=== PATIENT | female | born 1965 | race Caucasian/White ===

== ENCOUNTER 2017-12-22 08:01 | Emergency (ER) | payer MEDICAID ==
[~2017-12-22] VITALS: Ht 175.3 cm; Wt 56.0 kg
[~2017-12-22 08:01] MED LIST: BUPR100T4 PO; HYDR-565 PO; HYDR-569 PO; KETO10TA2 PO; LORA10TA7 PO; METH18TA4 PO
[2017-12-22 08:36] LABS: URINE HCG NEGATIVE (NEG)
[2017-12-22 09:07] LABS: CLARITY,URINE CLOUDY (Clear); COLOR,URINE YELLOW (Yellow); GLUCOSE, URINE NEGATIVE (Neg); KETONES,URINE NEGATIVE (Neg); LEUKOCYTE ESTERASE ,URINE NEGATIVE (Neg); NITRITES, URINE NEGATIVE (Neg); OCCULT BLOOD,URINE NEGATIVE (Neg); PH,URINE 7.5 (4.8-8.0); PROTEIN,URINE NEGATIVE (Neg); UROBILINOGEN,URINE 0.2 E.U/dL (0.2-1.0)
[2017-12-22 09:13] LABS: UA COLLECTION TYPE FOLEY CATH
[2017-12-22 09:15] LABS: SQUAMOUS EPITHELIAL CELL,UR FEW /LPF (FEW)
[2017-12-22 09:17] LABS: BACTERIA,URINE NONE SEEN /HPF (Neg); MUCUS STRANDS NONE SEEN /LPF (Neg); RBC,URINE NONE SEEN /HPF (0-2); WBC,URINE 0-4 /HPF (0-4)
[2017-12-22 09:18] LABS: AMORPHOUS PHOSPHATES 4+
[2017-12-22] MEDS ORDERED: ketorolac trometh inj. 60 MG/2 ML VIAL IM ONE (09:20)
[2017-12-22 09:45] VITALS: BP 137/88
== END 2017-12-22 09:47 | disposition home or self-care (01) ==
LOC: ER 08:02
DX: M54.5 Low back pain (principal); M06.9 Rheumatoid arthritis, unspecified; Z86.14 Personal history of Methicillin resistant Staphylococcus aureus infection; Z98.890 Other specified postprocedural states; Z79.899 Other long term (current) drug therapy; Z87.442 Personal history of urinary calculi; Z88.1 Allergy status to other antibiotic agents; Z56.0 Unemployment, unspecified; W22.8XXA Striking against or struck by other objects, initial encounter; Y93.89 Activity, other specified; Y92.89 Other specified places as the place of occurrence of the external cause; Y99.8 Other external cause status
CPT/HCPCS: 81001; 81025; 96372; 99284; J1885

== ENCOUNTER 2018-02-05 17:49 | Emergency (ER) | payer MEDICAID ==
[~2018-02-05] VITALS: Ht 175.3 cm; Wt 58.6 kg
[2018-02-05 19:00] VITALS: BP 139/81
== END 2018-02-05 20:04 | disposition home or self-care (01) ==
LOC: ER 17:49
DX: M54.5 Low back pain (principal); M06.9 Rheumatoid arthritis, unspecified; Z87.442 Personal history of urinary calculi; Z86.14 Personal history of Methicillin resistant Staphylococcus aureus infection; Z98.890 Other specified postprocedural states; Z56.0 Unemployment, unspecified; Z88.8 Allergy status to other drugs, medicaments and biological substances; Z79.899 Other long term (current) drug therapy
CPT/HCPCS: 72100; 99284

== ENCOUNTER 2018-05-25 04:15 | Emergency (ER) | payer MEDICAID ==
[~2018-05-25] VITALS: Ht 175.3 cm; Wt 40.0 kg
[2018-05-25] MEDS ORDERED: LIDOcaine 1%/PF 5ML 10 MG/ML VIAL IJ ONE (06:35)
[2018-05-25 07:00] VITALS: BP 139/87
== END 2018-05-25 07:09 | disposition home or self-care (01) ==
LOC: ER 04:16
DX: S90.852A Superficial foreign body, left foot, initial encounter (principal); Z86.14 Personal history of Methicillin resistant Staphylococcus aureus infection; Z98.890 Other specified postprocedural states; Z56.0 Unemployment, unspecified; Z88.1 Allergy status to other antibiotic agents; Z79.899 Other long term (current) drug therapy; X58.XXXA Exposure to other specified factors, initial encounter; Y93.01 Activity, walking, marching and hiking; Y92.830 Public park as the place of occurrence of the external cause; Y99.8 Other external cause status
CPT/HCPCS: 73620; 99284; J2001; A6449

== ENCOUNTER 2018-08-21 09:54 | Emergency (ER) | payer MEDICAID ==
[~2018-08-21] VITALS: Ht 175.3 cm; Wt 60.9 kg
[~2018-08-21 09:54] MED LIST changes: +HYDR-4353 PO; +HYDR-4383 PO; -HYDR-565 PO; -HYDR-569 PO
[2018-08-21 10:48] VITALS: BP 124/79
[2018-08-21] MEDS ORDERED: ketorolac trometh inj. 60 MG/2 ML VIAL IM ONE (11:30)
[2018-08-21] MEDS ORDERED: cyclobenzaprine 10mg tablet PO ONE (11:30)
[2018-08-21] MEDS ORDERED: IBUP-1984 PO (11:31)
[2018-08-21] MEDS ORDERED: CYCL-1 PO (11:31)
== END 2018-08-21 11:58 | disposition home or self-care (01) ==
LOC: ER 09:55
DX: S29.012A Strain of muscle and tendon of back wall of thorax, initial encounter (principal); F32.9 Major depressive disorder, single episode, unspecified; M06.9 Rheumatoid arthritis, unspecified; Z88.1 Allergy status to other antibiotic agents; Z79.899 Other long term (current) drug therapy; Z87.442 Personal history of urinary calculi; Z86.14 Personal history of Methicillin resistant Staphylococcus aureus infection; Z56.0 Unemployment, unspecified; X50.0XXA Overexertion from strenuous movement or load, initial encounter; Y93.89 Activity, other specified; Y92.89 Other specified places as the place of occurrence of the external cause; Y99.8 Other external cause status
CPT/HCPCS: 96372; 99283; J1885; 87070; 87075; 87077; 87102; 87186

== ENCOUNTER 2018-09-14 12:47 | Emergency (ER) | payer MEDICAID ==
[~2018-09-14] VITALS: Ht 175.3 cm; Wt 60.5 kg
[~2018-09-14 12:47] MED LIST changes: +CYCL-1 PO
[2018-09-14 13:22] VITALS: BP 126/84
== END 2018-09-14 14:16 | disposition home or self-care (01) ==
LOC: ER 12:47
DX: M50.323 Other cervical disc degeneration at C6-C7 level (principal); M06.9 Rheumatoid arthritis, unspecified; Z87.442 Personal history of urinary calculi; Z98.890 Other specified postprocedural states; Z56.0 Unemployment, unspecified; Z88.1 Allergy status to other antibiotic agents; Z79.899 Other long term (current) drug therapy
CPT/HCPCS: 72040; 99283

== ENCOUNTER 2018-12-19 12:19 | Emergency (ER) | payer MEDICAID ==
[~2018-12-19] VITALS: Ht 175.3 cm; Wt 59.1 kg
[2018-12-19 12:39] VITALS: BP 140/92
--- NOTE | 2018-12-19 15:08 | NUR ---
Splint and sling placed my [facility].
--- NOTE | 2018-12-19 15:12 | NUR ---
Pt was informed of need for urine drug screen prior to any narcotic pain medication. Pt became agitated and ambulated out of the ED. Addendum: 12/19/18 at 1517 by [email or web address] Pt ambulated out of ED prior to receiving discharge instructions.
== END 2018-12-19 15:19 | disposition home or self-care (01) ==
LOC: ER 12:20
DX: S62.102A Fracture of unspecified carpal bone, left wrist, initial encounter for closed fracture (principal); M06.9 Rheumatoid arthritis, unspecified; Z87.442 Personal history of urinary calculi; Z86.14 Personal history of Methicillin resistant Staphylococcus aureus infection; Z98.890 Other specified postprocedural states; Z56.0 Unemployment, unspecified; Z88.8 Allergy status to other drugs, medicaments and biological substances; Z79.899 Other long term (current) drug therapy; W18.39XA Other fall on same level, initial encounter; Y93.89 Activity, other specified; Y92.89 Other specified places as the place of occurrence of the external cause; Y99.8 Other external cause status
CPT/HCPCS: 29125; 73110; 99284

== ENCOUNTER 2019-01-26 20:07 | Emergency (ER) | payer MEDICAID ==
[~2019-01-26] VITALS: Ht 175.3 cm; Wt 62.3 kg
[2019-01-26 20:12] VITALS: BP 165/98
[2019-01-26] MEDS ORDERED: LIDOcaine Viscous 15ml cup MM STA (20:17)
[2019-01-26] MEDS ORDERED: mag hydrox/Alum hydrox/simeth 30ml oral suspension PO ONE (20:20)
== END 2019-01-26 21:23 | disposition left against medical advice (07) ==
LOC: ER 20:08
DX: J02.9 Acute pharyngitis, unspecified (principal); Z53.21 Procedure and treatment not carried out due to patient leaving prior to being seen by health care provider

== ENCOUNTER 2019-08-16 14:42 | Emergency (ER) | payer MEDICAID ==
[~2019-08-16] VITALS: Ht 175.3 cm; Wt 58.0 kg
[2019-08-16 14:48] VITALS: BP 141/99
[2019-08-16] MEDS ORDERED: SULF1TAB49 PO (15:39)
== END 2019-08-16 16:11 | disposition home or self-care (01) ==
LOC: ER 14:43
DX: S80.811A Abrasion, right lower leg, initial encounter (principal); L03.115 Cellulitis of right lower limb; M19.90 Unspecified osteoarthritis, unspecified site; F32.9 Major depressive disorder, single episode, unspecified; Z86.14 Personal history of Methicillin resistant Staphylococcus aureus infection; Z87.442 Personal history of urinary calculi; Z98.890 Other specified postprocedural states; Z56.0 Unemployment, unspecified; Z88.1 Allergy status to other antibiotic agents; Z79.899 Other long term (current) drug therapy; X58.XXXA Exposure to other specified factors, initial encounter; Y93.89 Activity, other specified; Y92.89 Other specified places as the place of occurrence of the external cause; Y99.8 Other external cause status
CPT/HCPCS: 99283

== ENCOUNTER 2020-02-19 15:27 | Emergency (ER) | payer MEDICAID ==
[~2020-02-19] VITALS: Ht 175.3 cm; Wt 57.4 kg
[2020-02-19] MEDS ORDERED: ondansetron/PF 4mg/2ml inj IV ONE (15:55)
[2020-02-19] MEDS ORDERED: normal saline 1000ml 1,000 ML IV ONE (15:55)
--- NOTE | 2020-02-19 16:01 | NUR ---
PT OUT TO CT VIA [facility] M WITH ADMINISTRATIVE PROFESSIONAL
[2020-02-19 16:54] LABS: BASOPHILS # (AUTO) 0.2 X10'3 (0-0.2); BASOPHILS % (AUTO) 1.2 % (0-1); EOSINOPHILS % (AUTO) 0.1 % (0-6); HEMATOCRIT 41.7 % (35.0-45.0); HEMOGLOBIN 13.5 g/dl (12.0-16.0); LYMPHOCYTES # (AUTO) 0.8 X10'3 (1.1-4.8); LYMPHOCYTES % (AUTO) 4.6 % (21-51); MEAN CORPUSCULAR HEMOGLOBIN 29.3 PG (27.0-31.0); MEAN CORPUSCULAR HGB CONC 32.4 g/dL (33.0-36.5); MEAN CORPUSCULAR VOLUME 90.2 FL (78-98); MEAN PLATELET VOLUME 8.6 FL (7.4-10.4); MONOCYTES # (AUTO) 0.8 X10'3 (0-0.9); MONOCYTES % (AUTO) 4.5 % (2-12); NEUTROPHILS # (AUTO) 15.6 X10'3 (1.8-7.7); NEUTROPHILS % (AUTO) 89.6 % (42-75); PLATELET COUNT 177 X10'3 (140-440); RED BLOOD COUNT 4.62 X10'6 (4.20-5.60); RED CELL DISTRIBUTION WIDTH 13.7 % (11.5-14.5); WHITE BLOOD COUNT 17.4 X10'3 (4.5-11.0)
[2020-02-19] MEDS ORDERED: levetiracetam inj 1,000 MG in normal saline 100ml IV soln 90 ML IV ONE (17:00)
[2020-02-19] MEDS ORDERED: levetiracetam-NS 1000mg/100ml 100 ML IV ONE (17:01)
[2020-02-19 17:06] LABS: ETHANOL < 0.010 GM/DL (0.0-0.010)
[2020-02-19 17:33] LABS: ALANINE AMINOTRANSFERASE 24 U/L (12-78); ALBUMIN 3.5 G/DL (3.4-5.0); ALBUMIN/GLOBULIN RATIO 1.1 (1.1-1.5); ALKALINE PHOSPHATASE 78 IU/L (46-116); ANION GAP 6 (8-16); ASPARTATE AMINO TRANSFERASE 29 U/L (10-37); BILIRUBIN,TOTAL 0.7 MG/DL (0.1-1.0); BLOOD UREA NITROGEN 12 MG/DL (7-18); BUN/CREATININE RATIO 13.2 (6.6-38.0); CALCIUM 10.4 MG/DL (8.5-10.1); CHLORIDE 101 MMOL/L (99-107); CREATININE 0.91 MG/DL (0.40-0.90); GLUCOSE 110 MG/DL (70-104); POTASSIUM 3.9 MMOL/L (3.5-5.1); SODIUM 135 MMOL/L (135-145); TOTAL CARBON DIOXIDE 27.9 MMOL/L (24-32); TOTAL PROTEIN 6.8 G/DL (6.4-8.2); eGFR 64 ML/MIN
[2020-02-19] MEDS ORDERED: morphine 4 MG/ML inj SYRINge IV ONE (18:05)
[2020-02-19 18:34] LABS: CLARITY,URINE SLIGHTLY CLOUDY (Clear); COLOR,URINE YELLOW (Yellow); GLUCOSE, URINE NEGATIVE (Neg); KETONES,URINE NEGATIVE (Neg); LEUKOCYTE ESTERASE ,URINE NEGATIVE (Neg); NITRITES, URINE NEGATIVE (Neg); OCCULT BLOOD,URINE NEGATIVE (Neg); PH,URINE 7.5 (4.8-8.0); PROTEIN,URINE NEGATIVE (Neg); UROBILINOGEN,URINE 0.2 E.U/dL (0.2-1.0)
[2020-02-19 18:36] LABS: URINE AMPHETAMINE SCREEN POSITIVE (Neg); URINE BARBITUATE SCREEN NEGATIVE (Neg); URINE BENZODIAZEPINES SCREEN NEGATIVE (Neg); URINE CANNABINOID SCREEN POSITIVE (Neg); URINE COCAINE SCREEN NEGATIVE (Neg); URINE METHADONE SCREEN NEGATIVE (Neg); URINE OPIATE SCREEN NEGATIVE (Neg); URINE PHENCYCLIDINE SCREEN NEGATIVE (Neg)
[2020-02-19 18:43] LABS: UA COLLECTION TYPE CLN CATCH MIDSTREAM
[2020-02-19 19:00] LABS: BACTERIA,URINE FEW /HPF (Neg); MUCUS STRANDS FEW /LPF (Neg); RBC,URINE NONE SEEN /HPF (0-2); SQUAMOUS EPITHELIAL CELL,UR MANY /LPF (FEW); WBC,URINE 0-4 /HPF (0-4)
[2020-02-19 19:01] LABS: AMORPHOUS PHOSPHATES 2+
[2020-02-19 19:37] VITALS: BP 137/81
--- NOTE | 2020-02-19 20:56 | NUR ---
PT ATTEMPTING TO CONTACT HER DAUGHTER FOR A RIDE AND A PLACE TO STAY.
== END 2020-02-19 21:36 | disposition home or self-care (01) ==
LOC: ER 15:28
DX: S01.81XA Laceration without foreign body of other part of head, initial encounter (principal); R55 Syncope and collapse; F32.9 Major depressive disorder, single episode, unspecified; Z87.442 Personal history of urinary calculi; Z86.14 Personal history of Methicillin resistant Staphylococcus aureus infection; Z98.890 Other specified postprocedural states; Z56.0 Unemployment, unspecified; Z88.1 Allergy status to other antibiotic agents; Z79.899 Other long term (current) drug therapy; X58.XXXA Exposure to other specified factors, initial encounter; Y93.89 Activity, other specified; Y92.89 Other specified places as the place of occurrence of the external cause; Y99.8 Other external cause status
CPT/HCPCS: 12001; 36415; 70450; 71045; 72125; 80053; 80305; 80320; 81001; 84484; 85025; 85610; 93005; 96365; 96375; 99285; J1953; J2270; J2405; J7030

== ENCOUNTER 2020-02-27 09:32 | Emergency (ER) | payer MEDICAID ==
[~2020-02-27] VITALS: Ht 175.3 cm; Wt 61.4 kg
[2020-02-27] MEDS ORDERED: LORazepam 1 MG tablet PO ONE (10:10)
[2020-02-27] MEDS ORDERED: traMADol 50MG tablet PO ONE (10:10)
[2020-02-27] MEDS ORDERED: cyclobenzaprine 10mg tablet PO ONE (10:10)
[2020-02-27 10:32] VITALS: BP 151/105
--- NOTE | 2020-02-27 10:34 | NUR ---
[facility][id number] bedside, engaging with pt.
[2020-02-27 10:48] LABS: BASOPHILS % (AUTO) 0.4 % (0-1); EOSINOPHILS # (AUTO) 0.1 X10'3 (0-0.9); EOSINOPHILS % (AUTO) 1.9 % (0-6); HEMATOCRIT 39.4 % (35.0-45.0); HEMOGLOBIN 12.8 g/dl (12.0-16.0); LYMPHOCYTES # (AUTO) 1.5 X10'3 (1.1-4.8); LYMPHOCYTES % (AUTO) 23.4 % (21-51); MEAN CORPUSCULAR HEMOGLOBIN 29.2 PG (27.0-31.0); MEAN CORPUSCULAR HGB CONC 32.5 g/dL (33.0-36.5); MEAN PLATELET VOLUME 8.1 FL (7.4-10.4); MONOCYTES # (AUTO) 0.3 X10'3 (0-0.9); MONOCYTES % (AUTO) 5.5 % (2-12); NEUTROPHILS # (AUTO) 4.3 X10'3 (1.8-7.7); NEUTROPHILS % (AUTO) 68.8 % (42-75); PLATELET COUNT 331 X10'3 (140-440); RED BLOOD COUNT 4.38 X10'6 (4.20-5.60); RED CELL DISTRIBUTION WIDTH 14.3 % (11.5-14.5); WHITE BLOOD COUNT 6.3 X10'3 (4.5-11.0)
[2020-02-27 10:58] LABS: D-DIMER 0.59 MG/L FEU (0-0.50); PARTIAL THROMBOPLASTIN TIME 27 SECONDS (22-32)
[2020-02-27 11:02] LABS: ALANINE AMINOTRANSFERASE 22 U/L (12-78); ALBUMIN 3.2 G/DL (3.4-5.0); ALBUMIN/GLOBULIN RATIO 0.9 (1.1-1.5); ALKALINE PHOSPHATASE 89 IU/L (46-116); ANION GAP 6 (8-16); ASPARTATE AMINO TRANSFERASE 23 U/L (10-37); BILIRUBIN,TOTAL 0.2 MG/DL (0.1-1.0); BLOOD UREA NITROGEN 13 MG/DL (7-18); BUN/CREATININE RATIO 14.6 (6.6-38.0); CHLORIDE 108 MMOL/L (99-107); CREATININE 0.89 MG/DL (0.40-0.90); GLUCOSE 90 MG/DL (70-104); POTASSIUM 4.1 MMOL/L (3.5-5.1); SODIUM 144 MMOL/L (135-145); TOTAL CARBON DIOXIDE 29.6 MMOL/L (24-32); TOTAL PROTEIN 6.9 G/DL (6.4-8.2); eGFR 66 ML/MIN
[2020-02-27 11:11] LABS: PHOSPHORUS 2.8 MG/DL (2.3-4.5)
[2020-02-27] MEDS ORDERED: DOXY100C76 PO (12:35)
--- NOTE | 2020-02-27 12:42 | NUR ---
Spoke with Michelle Seaman, seeking guidance on how to maintain pt's anonymity and safety r/t transport back to safe long-term given she was brought in via EMS. Urszula will be contacting the [facility] in charge for transportation details. felipa rOr informed.
--- NOTE | 2020-02-27 12:56 | NUR ---
Michelle Warren provided an update regarding transportation which will be provided by [facility] once best mode of transport identified.
--- NOTE | 2020-02-27 13:19 | NUR ---
Per Michelle Warren, [facility] has coordinated with [facility] with the latter providing a taxi for transport back to [facility]. [facility] personnel will reach out to pt tomorrow which will be communicated to pt.
== END 2020-02-27 13:39 | disposition home or self-care (01) ==
LOC: EEVIPCON 09:33 → ER 09:33
DX: T81.33XA Disruption of traumatic injury wound repair, initial encounter (principal); M79.662 Pain in left lower leg; F43.10 Post-traumatic stress disorder, unspecified; M06.9 Rheumatoid arthritis, unspecified; F32.9 Major depressive disorder, single episode, unspecified; Z86.14 Personal history of Methicillin resistant Staphylococcus aureus infection; Z56.0 Unemployment, unspecified; Z98.890 Other specified postprocedural states; Z88.0 Allergy status to penicillin; Z79.899 Other long term (current) drug therapy; Y83.9 Surgical procedure, unspecified as the cause of abnormal reaction of the patient, or of later complication, without mention of misadventure at the time of the procedure; Y92.89 Other specified places as the place of occurrence of the external cause
CPT/HCPCS: 36415; 80053; 83735; 84100; 84443; 85025; 85379; 85610; 85730; 93971; 99284

== ENCOUNTER 2020-03-13 10:48 | Emergency (ER) | payer MEDICAID ==
[~2020-03-13] VITALS: Ht 175.3 cm; Wt 61.4 kg
[2020-03-13 10:49] VITALS: BP 126/88
[2020-03-13] MEDS ORDERED: ketorolac tromethamine 15mg/ml inj. IM ONE (11:15)
[2020-03-13] MEDS ORDERED: CYCL-1 PO (11:20)
== END 2020-03-13 11:43 | disposition home or self-care (01) ==
LOC: ER 10:49
DX: M79.652 Pain in left thigh (principal); M54.5 Low back pain; F32.9 Major depressive disorder, single episode, unspecified; M06.9 Rheumatoid arthritis, unspecified; Z86.14 Personal history of Methicillin resistant Staphylococcus aureus infection; Z87.442 Personal history of urinary calculi; Z98.890 Other specified postprocedural states; Z88.1 Allergy status to other antibiotic agents; Z79.899 Other long term (current) drug therapy
CPT/HCPCS: 96372; 99284; J1885

== ENCOUNTER 2020-03-20 09:49 | Emergency (ER) | payer MEDICAID ==
[~2020-03-20] VITALS: Ht 175.3 cm; Wt 62.3 kg
[2020-03-20] MEDS ORDERED: ketorolac tromethamine 15mg/ml inj. IM ONE (11:10)
[2020-03-20] MEDS ORDERED: IBUP-1985 PO (11:11)
[2020-03-20] MEDS ORDERED: METH-360 PO (11:11)
[2020-03-20 11:23] VITALS: BP 123/87
== END 2020-03-20 11:24 | disposition home or self-care (01) ==
LOC: ER 09:50
DX: M54.42 Lumbago with sciatica, left side (principal); R05 Cough; M81.0 Age-related osteoporosis without current pathological fracture; M06.9 Rheumatoid arthritis, unspecified; F32.9 Major depressive disorder, single episode, unspecified; Z86.14 Personal history of Methicillin resistant Staphylococcus aureus infection; Z98.890 Other specified postprocedural states; Z56.0 Unemployment, unspecified; Z88.0 Allergy status to penicillin; Z79.899 Other long term (current) drug therapy
CPT/HCPCS: 96372; 99284; J1885

== ENCOUNTER 2020-05-01 02:57 | Emergency (ER) | payer MEDICAID ==
[~2020-05-01] VITALS: Ht 175.3 cm; Wt 59.1 kg
[~2020-05-01 02:57] MED LIST changes: +IBUP-1985 PO; +METH-360 PO
[2020-05-01] MEDS ORDERED: TRIA15CR61 TOP (03:20)
[2020-05-01] MEDS ORDERED: CLIN150C8 PO (03:20)
[2020-05-01 03:37] VITALS: BP 133/80
== END 2020-05-01 03:39 | disposition home or self-care (01) ==
LOC: ER 02:57
DX: R21 Rash and other nonspecific skin eruption (principal); T36.8X5A Adverse effect of other systemic antibiotics, initial encounter; M19.90 Unspecified osteoarthritis, unspecified site; F32.9 Major depressive disorder, single episode, unspecified; Z86.14 Personal history of Methicillin resistant Staphylococcus aureus infection; Z87.442 Personal history of urinary calculi; Z98.890 Other specified postprocedural states; Z56.0 Unemployment, unspecified; Z88.1 Allergy status to other antibiotic agents; Z79.899 Other long term (current) drug therapy; Y92.89 Other specified places as the place of occurrence of the external cause
CPT/HCPCS: 99283

== ENCOUNTER 2020-05-10 13:23 | Emergency (ER) | payer MEDICAID ==
[~2020-05-10] VITALS: Ht 175.3 cm; Wt 61.0 kg
[~2020-05-10 13:23] MED LIST changes: +CLIN150C8 PO; +TRIA15CR61 TOP
[2020-05-10 13:34] VITALS: BP 131/87
[2020-05-10] MEDS ORDERED: mupirocin 2% ointment 22GM TP STA (14:26)
--- NOTE | 2020-05-10 14:37 | NUR ---
bactroban ointment plaved on wound with simple dressing placed, awaiting d/c paperwork
[2020-05-10] MEDS ORDERED: DICL100G30 TOP (14:38)
== END 2020-05-10 14:49 | disposition home or self-care (01) ==
LOC: ER 13:24
DX: Z48.01 Encounter for change or removal of surgical wound dressing (principal); R22.2 Localized swelling, mass and lump, trunk; M81.0 Age-related osteoporosis without current pathological fracture; F32.9 Major depressive disorder, single episode, unspecified; Z87.442 Personal history of urinary calculi; Z86.14 Personal history of Methicillin resistant Staphylococcus aureus infection; Z98.890 Other specified postprocedural states; Z56.0 Unemployment, unspecified; Z88.1 Allergy status to other antibiotic agents; Z79.899 Other long term (current) drug therapy
CPT/HCPCS: 99283

== ENCOUNTER 2020-08-05 16:44 | Emergency (ER) | payer MEDICAID ==
[~2020-08-05] VITALS: Ht 175.3 cm; Wt 63.2 kg
[~2020-08-05 16:44] MED LIST changes: +DICL100G30 TOP; -TRIA15CR61 TOP
[2020-08-05 16:49] VITALS: BP 146/86
[2020-08-05] MEDS ORDERED: GABA300T26 PO (17:11)
== END 2020-08-05 17:28 | disposition home or self-care (01) ==
LOC: ER 16:45
DX: M54.30 Sciatica, unspecified side (principal); F32.9 Major depressive disorder, single episode, unspecified; M81.0 Age-related osteoporosis without current pathological fracture; Z56.0 Unemployment, unspecified; Z76.0 Encounter for issue of repeat prescription; Z87.442 Personal history of urinary calculi
CPT/HCPCS: 99281

== ENCOUNTER 2021-10-07 10:34 | Emergency (ER) | payer MEDICAID ==
[~2021-10-07] VITALS: Ht 175.3 cm; Wt 72.0 kg
[~2021-10-07 10:34] MED LIST changes: +GABA300T26 PO
[2021-10-07 10:35] VITALS: BP 136/94
[2021-10-07] MEDS ORDERED: ibuprofen tablet 400 MG TABLET PO ONE ×2 (11:30→11:35)
[2021-10-07] MEDS ORDERED: HYDROcodone/acetaminophen 5mg/325mg tablet PO ONE (11:30)
[2021-10-07] MEDS ORDERED: HYDR-3964 PO (12:06)
[2021-10-07] MEDS ORDERED: IBUP-1984 PO (12:06)
== END 2021-10-07 17:02 | disposition home or self-care (01) ==
LOC: ER 10:34
DX: S52.121A Displaced fracture of head of right radius, initial encounter for closed fracture (principal); F32.9 Major depressive disorder, single episode, unspecified; Z87.442 Personal history of urinary calculi; Z56.0 Unemployment, unspecified; V89.9XXA Person injured in unspecified vehicle accident, initial encounter; Y93.89 Activity, other specified; Y92.89 Other specified places as the place of occurrence of the external cause; Y99.8 Other external cause status
CPT/HCPCS: 73090; 73110; 93005; 99284

== ENCOUNTER 2021-10-09 10:26 | Emergency (ER) | payer MEDICAID ==
[~2021-10-09] VITALS: Ht 175.3 cm; Wt 72.7 kg
[~2021-10-09 10:26] MED LIST changes: +HYDR-3964 PO; +IBUP-1984 PO
[2021-10-09 10:30] VITALS: BP 124/67
[2021-10-09] MEDS ORDERED: HYDROcodone/acetaminophen 5mg/325mg tablet PO ONE (10:35)
[2021-10-09] MEDS ORDERED: ondansetron 4mg rapidly disintigrating tab PO STA (10:54)
[2021-10-09] MEDS ORDERED: HYDR-3972 PO (12:23)
== END 2021-10-09 12:41 | disposition home or self-care (01) ==
LOC: ER 10:27
DX: S52.501A Unspecified fracture of the lower end of right radius, initial encounter for closed fracture (principal); M25.531 Pain in right wrist; R51.9 Headache, unspecified; R07.81 Pleurodynia; F32.9 Major depressive disorder, single episode, unspecified; Z87.442 Personal history of urinary calculi; Z86.14 Personal history of Methicillin resistant Staphylococcus aureus infection; Z98.890 Other specified postprocedural states; Z56.0 Unemployment, unspecified; Z88.1 Allergy status to other antibiotic agents; Z79.2 Long term (current) use of antibiotics; Z79.899 Other long term (current) drug therapy; W19.XXXA Unspecified fall, initial encounter; Y93.89 Activity, other specified; Y92.89 Other specified places as the place of occurrence of the external cause; Y99.8 Other external cause status
CPT/HCPCS: 29125; 71045; 99283

== ENCOUNTER 2022-02-09 10:37 | Emergency (ER) | payer MEDICAID ==
[~2022-02-09] VITALS: Ht 175.3 cm; Wt 72.0 kg
[~2022-02-09 10:37] MED LIST changes: -HYDR-3964 PO; -IBUP-1984 PO
[2022-02-09 11:03] VITALS: BP 117/69
[2022-02-09] MEDS ORDERED: NAPR-56 PO (11:19)
[2022-02-09] MEDS ORDERED: LIDO700A32 TOP (11:19)
== END 2022-02-09 11:33 | disposition home or self-care (01) ==
LOC: ER 10:37
DX: S23.41XA Sprain of ribs, initial encounter (principal); F32.9 Major depressive disorder, single episode, unspecified; M19.90 Unspecified osteoarthritis, unspecified site; Z86.14 Personal history of Methicillin resistant Staphylococcus aureus infection; Z87.442 Personal history of urinary calculi; Z56.0 Unemployment, unspecified; Z98.890 Other specified postprocedural states; Z88.1 Allergy status to other antibiotic agents; Z79.899 Other long term (current) drug therapy; X50.1XXA Overexertion from prolonged static or awkward postures, initial encounter; Y93.89 Activity, other specified; Y92.89 Other specified places as the place of occurrence of the external cause; Y99.8 Other external cause status
CPT/HCPCS: 99284

== ENCOUNTER 2022-05-15 16:59 | Emergency (ER) | payer MEDICAID ==
[~2022-05-15] VITALS: Ht 175.3 cm; Wt 72.7 kg
[~2022-05-15 16:59] MED LIST changes: +LIDO700A32 TOP
[2022-05-15 17:34] VITALS: BP 111/72
[2022-05-15 18:50] LABS: CLARITY,URINE CLEAR (Clear); COLOR,URINE YELLOW (Yellow); GLUCOSE, URINE NEGATIVE (Neg); KETONES,URINE NEGATIVE (Neg); LEUKOCYTE ESTERASE ,URINE NEGATIVE (Neg); NITRITES, URINE NEGATIVE (Neg); OCCULT BLOOD,URINE NEGATIVE (Neg); PROTEIN,URINE NEGATIVE (Neg)
[2022-05-15 18:53] LABS: UA COLLECTION TYPE CLN CATCH MIDSTREAM
[2022-05-15] MEDS ORDERED: ibuprofen 200mg tablet PO ONE (20:00)
== END 2022-05-15 20:14 | disposition home or self-care (01) ==
LOC: ER 17:00
DX: M54.59 Other low back pain (principal); F32.A Depression, unspecified; Z56.0 Unemployment, unspecified; Z86.14 Personal history of Methicillin resistant Staphylococcus aureus infection; E03.9 Hypothyroidism, unspecified; Z88.1 Allergy status to other antibiotic agents; Z79.899 Other long term (current) drug therapy; Z79.1 Long term (current) use of non-steroidal anti-inflammatories (NSAID)
CPT/HCPCS: 81003; 99283

== ENCOUNTER 2022-09-29 16:24 | Emergency (ER) | payer MEDICAID ==
[~2022-09-29] VITALS: Ht 172.7 cm; Wt 65.0 kg
[2022-09-29 16:30] VITALS: BP 131/87
[2022-09-29] MEDS ORDERED: HYDROcodone/acetaminophen 5mg/325mg tablet PO ONE (17:15)
[2022-09-29] MEDS ORDERED: ketorolac trometh inj. 60 MG/2 ML VIAL IM ONE (17:16)
[2022-09-29] MEDS ORDERED: LIDO-15 TD (17:20)
== END 2022-09-29 17:30 | disposition home or self-care (01) ==
LOC: ER 16:25
DX: S29.012A Strain of muscle and tendon of back wall of thorax, initial encounter (principal); G89.29 Other chronic pain; F32.9 Major depressive disorder, single episode, unspecified; Z86.14 Personal history of Methicillin resistant Staphylococcus aureus infection; Z87.442 Personal history of urinary calculi; Z98.890 Other specified postprocedural states; Z56.0 Unemployment, unspecified; Z88.1 Allergy status to other antibiotic agents; Z79.899 Other long term (current) drug therapy
CPT/HCPCS: 96372; 99283; J1885

== ENCOUNTER 2023-05-21 08:44 | Emergency (ER) | payer MEDICAID ==
[~2023-05-21] VITALS: Ht 175.3 cm; Wt 70.0 kg
[~2023-05-21 08:44] MED LIST changes: +CLIN-214 PO; -CLIN150C8 PO; -DICL100G30 TOP; +DICL100G59 TOP; +LIDO-15 TD
[2023-05-21 08:53] VITALS: BP 123/73; PULSE 60; RESP 16; O2SAT 98
[2023-05-21] MEDS ORDERED: PARO-141 (10:17)
--- NOTE | 2023-05-21 10:22 | NUR ---
pt here for right ear pain x 3 days pt states allergic to ampicillin and would perfer the ear drops instead of abx. XPLVN
[2023-05-21] MEDS ORDERED: CIPR10DR RIGHT EAR (11:23)
[2023-05-21 11:33] VITALS: TEMP 97.9
== END 2023-05-21 11:44 | disposition home or self-care (01) ==
LOC: ER 08:45
DX: H60.91 Unspecified otitis externa, right ear (principal); M81.0 Age-related osteoporosis without current pathological fracture; G89.29 Other chronic pain; Z56.0 Unemployment, unspecified; Z86.14 Personal history of Methicillin resistant Staphylococcus aureus infection; Z88.1 Allergy status to other antibiotic agents; Z79.2 Long term (current) use of antibiotics; Z79.899 Other long term (current) drug therapy
CPT/HCPCS: 99283

== ENCOUNTER 2023-06-20 05:19 | Emergency (ER) | payer MEDICAID ==
[~2023-06-20] VITALS: Ht 175.3 cm; Wt 60.6 kg
[~2023-06-20 05:19] MED LIST changes: +PARO-141
[2023-06-20 05:22] VITALS: BP 127/78; PULSE 63; RESP 16; TEMP 97.7; O2SAT 98
[2023-06-20] MEDS ORDERED: CYCL-1 PO (06:43)
[2023-06-20] MEDS ORDERED: ketorolac tromethamine 15mg/ml inj. IM ONE (06:45)
== END 2023-06-20 07:34 | disposition home or self-care (01) ==
LOC: ER 05:19
DX: M54.50 Low back pain, unspecified (principal); Z88.0 Allergy status to penicillin; Z79.899 Other long term (current) drug therapy; Z79.1 Long term (current) use of non-steroidal anti-inflammatories (NSAID); Z79.2 Long term (current) use of antibiotics
CPT/HCPCS: 96372; 99283; J1885

== ENCOUNTER 2025-01-01 12:59 | Emergency (ER) | payer MEDICAID ==
[~2025-01-01] VITALS: Ht 175.3 cm; Wt 68.2 kg
[2025-01-01] MEDS ORDERED: PRED20TA PO (15:20)
[2025-01-01] MEDS ORDERED: LIDO700A32 TD (15:20)
[2025-01-01] MEDS ORDERED: BACL10TA2 PO (15:20)
--- NOTE | 2025-01-01 15:20 | Physician Documentation ---
History of Present Illness ~ Chief Complaint: Back Pain Stated Complaint: BACK PAIN Time Seen by MD: 14:24 Primary Medical Doctor: [facility]- Cm Yadav HPI 59-year-old female with a prior history of sciatica Bentyl over and felt a pop in her back yesterday. She is going to monitor radicular pain down the left leg without loss of bowel or bladder. No reported fevers. She does have a slow antalgic gait. Medication Reconciliation Allergies: Coded Allergies: ampicillin (Unverified Allergy, Unknown, HIVES, 05/21/23) Scheduled Baclofen (Baclofen), 1 TAB PO Q8H Bupropion Hcl (Wellbutrin), 1 TABLET PO TID, (Reported) Clindamycin HCl (Clindamycin HCl CAPSULE), 1 CAP PO TID Cyclobenzaprine* (Cyclobenzaprine*), 1 TAB PO TID Cyclobenzaprine* (Cyclobenzaprine*), 1 TAB PO Q8H Cyclobenzaprine* (Cyclobenzaprine*), 1 TAB PO Q8H Diclofenac Sodium (Diclofenac Sodium), 1 APPLIC TOP Q6H Gabapentin Enacarbil (Horizant), 1 TAB PO QPM Hydrocodone Bit/Acetaminophen (Lutz 10-325 Tablet), 1 TAB PO Q6H Ibuprofen (Ibuprofen), 1 TAB PO Q8H Lidocaine (Lidoderm), 1 PATCH TOP DAILY Lidocaine (Lidoderm), 1 PATCH TD DAILY Loratadine (Loratadine), 10 MG PO DAILY, (Reported) Methocarbamol (Robaxin-750), 1 TAB PO Q12H Methylphenidate HCl (Concerta), 1 TABLET PO DAILY Prednisone* (Prednisone*), 3 TAB PO DAILY Scheduled PRN Hydrocodone/Acetaminophen (Lutz 5-325 Tablet), 1 TAB PO Q6H PRN PRN for pain Ketorolac Tromethamine (Ketorolac Tromethamine), 1 TAB PO Q8HPRN PRN for pain Lidocaine/Menthol (Lidocaine-Menthol 4%-1% Patch), 1 PATCH TD DAILY PRN for pain Miscellaneous Medications Paroxetine HCl (Paxil), (Reported) Past Medical History Past Medical History: Allergic Rhinitis, Kidney Stones, Thyroid (unspecified), Chronic Back Pain, Osteoporosis, Rheumatoid Arthritis, MRSA Abscess, Depression Past Surgical History: orthopedic surgeries Alcohol Use: None Drug Use: none Lives with: Family Lives In: Home, Other Occupation: unemployed Review of Systems All Other Systems at this time: Reviewed and Negative Musculoskeletal: Reports: back pain Physical Exam Physical Exam Vital Signs: RN Vital Signs have been reviewed: Yes, Temperature: 98.8, Source: Oral, Heart Rate: 66, Respiratory Rate: 16, BP: 129/91, Pulse Oximetry: 96, Weight: 68.180 Oxygen Flow Rate: 0 General Appearance: alert, mild distress EENT: PERRL/EOMI Neck: non-tender Respiratory: no respiratory distress Gastrointestinal: non-tender BacK: normal inspection, no CVA tenderness, decreased range of motion, muscle spasm, + straight leg raise DTR - Lower Extremities: 2+ knee (R), 2+ knee (L), 2+ ankle (R), 2+ ankle (L) Sensory/Motor: sensation grossly intact, 5/5 strength all extrem. Neurologic: oriented x4 Psychiatric: normal mood/affect Skin: normal color Progress Results/Orders Results/Orders Vital Signs 01/01/25 01/01/25 13:18 15:32 Temp 98.8 98.7 Pulse 66 68 Resp 16 16 B/P (MAP) 129/91 130/90 Pulse Ox 96 97 O2 Flow Rate 0 Medical Decision Making Differential Diagnosis Examination history consistent with acute lumbar strain. We will provide prednisone, Lidoderm patches and baclofen. Patient is able to toe-walk and heel-walk which were both reassuring. Discharged without clinical suspicion for cauda equina syndrome, epidural abscess or acute diskitis. Departure Disposition: HOME / SELF CARE / HOMELESS Impression: Primary Impression: Sciatica Qualified Codes: M54.32 - Sciatica, left side Condition: Stable Discharge Instructions: Sciatica Referrals: NO PRIMARY CARE PROVIDER (PCP) Prescriptions Baclofen (Baclofen) 10 Mg Tablet 1 TAB PO Q8H for 30 Days, #30 TAB 0 Refills Prov: JONNA BEARD 01/01/25 Lidocaine (Lidoderm) 5 % Adh..patch 1 PATCH TD DAILY, #10 BOXS Apply 1 patch daily for 12 hours then off for 12 hours May sub 15 grams 4 pct lidocaine cream if patches are cost peohibitive Prov: JONNA BEARD 01/01/25 Prednisone* (Prednisone*) 20 Mg Tablet 3 TAB PO DAILY, #15 TAB Prov: JONNA BEARD 01/01/25 Education Educated: Patient Educated regarding: diagnosis, treatment Signature Scribe Signature: . Attestation: . JONNA BEARD PAC January 01, 2025 15:20
[2025-01-01 15:32] VITALS: BP 130/90; PULSE 68; RESP 16; TEMP 98.7; O2SAT 97
== END 2025-01-01 15:34 | disposition home or self-care (01) ==
LOC: ER 13:00
DX: M54.32 Sciatica, left side (principal); M06.9 Rheumatoid arthritis, unspecified; F32.A Depression, unspecified; Z87.440 Personal history of urinary (tract) infections; M81.0 Age-related osteoporosis without current pathological fracture; Z88.0 Allergy status to penicillin; Z88.8 Allergy status to other drugs, medicaments and biological substances
CPT/HCPCS: 99283